=== PATIENT | female | born 1955 | race Caucasian/White ===

== ENCOUNTER 2022-04-17 09:34 | Outpatient (CLI) | payer MEDICARE | END 2022-04-17 09:35 | disposition home or self-care (01) | LOC: CSHMAMMO 09:34 | PROVIDERS: ATTEND Family Medicine | DX: Z12.31 Encounter for screening mammogram for malignant neoplasm of breast (principal) | CPT/HCPCS: 77063; 77067 ==

== ENCOUNTER 2022-04-23 17:45 | Emergency (ER) | payer MEDICARE | END 2022-04-23 20:29 | disposition home or self-care (01) | LOC: CSHERS 17:45 | DX: S51.812A Laceration without foreign body of left forearm, initial encounter (principal); M25.532 Pain in left wrist; I10 Essential (primary) hypertension; E11.9 Type 2 diabetes mellitus without complications; E78.5 Hyperlipidemia, unspecified; I25.10 Atherosclerotic heart disease of native coronary artery without angina pectoris; J44.9 Chronic obstructive pulmonary disease, unspecified; F17.210 Nicotine dependence, cigarettes, uncomplicated; W18.11XA Fall from or off toilet without subsequent striking against object, initial encounter; Y92.002 Bathroom of unspecified non-institutional (private) residence as the place of occurrence of the external cause ==

== ENCOUNTER 2022-06-11 09:08 | Emergency (ER) | payer OTHER, MEDICARE | END 2022-06-11 11:00 | disposition home or self-care (01) | LOC: CSHERS 09:08 | DX: S09.90XA Unspecified injury of head, initial encounter (principal); S70.02XA Contusion of left hip, initial encounter; Z79.84 Long term (current) use of oral hypoglycemic drugs; Z79.899 Other long term (current) drug therapy; Z79.82 Long term (current) use of aspirin; I25.10 Atherosclerotic heart disease of native coronary artery without angina pectoris; I10 Essential (primary) hypertension; E78.5 Hyperlipidemia, unspecified; E11.9 Type 2 diabetes mellitus without complications; J44.9 Chronic obstructive pulmonary disease, unspecified; F17.210 Nicotine dependence, cigarettes, uncomplicated; W01.10XA Fall on same level from slipping, tripping and stumbling with subsequent striking against unspecified object, initial encounter | CPT/HCPCS: 70450; 72170 ==

== ENCOUNTER 2022-07-31 12:41 | Emergency (ER) | payer OTHER, MEDICARE | END 2022-07-31 14:45 | disposition home or self-care (01) | LOC: CSHERS 12:41 | DX: M25.512 Pain in left shoulder (principal); I25.10 Atherosclerotic heart disease of native coronary artery without angina pectoris; I10 Essential (primary) hypertension; E11.9 Type 2 diabetes mellitus without complications; J44.9 Chronic obstructive pulmonary disease, unspecified; F17.210 Nicotine dependence, cigarettes, uncomplicated; Z79.84 Long term (current) use of oral hypoglycemic drugs; Z79.899 Other long term (current) drug therapy; W01.0XXA Fall on same level from slipping, tripping and stumbling without subsequent striking against object, initial encounter | CPT/HCPCS: 93005 ==

== ENCOUNTER 2022-09-26 19:58 | Emergency (ER) | payer MEDICARE ==
[2022-09-26] MEDS ORDERED: Ondansetron PF 4 MG/2 ML Vial ONE (20:49)
[2022-09-26] MEDS ORDERED: Pantoprazole 40 MG VIAL ONE (20:49)
[2022-09-26 20:50] LABS: #Basophils 0.1 10x3/uL (0.0-0.2); #Eosinphils 0.1 10x3/uL (0.0-0.5); #Monocytes 0.5 10x3/uL (0.0-1.1); #Neutrophils 13.1 10x3/uL (1.5-8.4); %Basophils 0.3 % (0.0-2.0); %Eosinophils 0.4 % (0.0-6.0); %Lymphocytes 6.9 % (18.0-47.0); %Monocytes 3.3 % (0.0-10.0); %Neutrophils 88.8 % (40.0-75.0); Hemoglobin 15.3 g/dL (12.0-15.5); Mean Corpuscular HGB CONC 34.3 g/dL (32.0-36.0); Mean Corpuscular Hemoglobin 30.8 pg (27.0-33.0); Mean Corpuscular Volume 89.7 fl (81.6-98.3); Mean Platelet Volume 10.4 fl (7.4-10.4); Platelet Count 283 10x3/uL (150-450); RBC Distribution Width 13.7 % (11.5-14.5); Red Blood Cell (RBC) Count 4.97 10x6/uL (3.90-5.03); White Blood Cell (WBC) Count 14.8 10x3/uL (3.5-10.5)
[2022-09-26 21:00] LABS: ALT (SGPT) 13 U/L (8-55); AST (SGOT) 15 U/L (5-34); Albumin 4.2 g/dL (3.4-4.8); Alkaline Phosphatase 63 U/L (40-110); Anion Gap 14 mmol/L (10-20); BUN (Urea Nitrogen) 21 mg/dL (9.8-20.1); Bilirubin, Total 0.4 mg/dL (0.2-1.2); Calc. Creatinine Clearance 0 mL/min (70-130); Carbon Dioxide 28 mmol/L (23-31); Chloride 93 mmol/L (98-107); Estimated GFR 84; Globulin 3.2 g/dL (2.4-3.5); Glucose 211 mg/dL (80-115); Lipase 86 U/L (8-78); Potassium 3.4 mmol/L (3.5-5.1); Protein, Total 7.4 g/dL (5.8-8.1); Sodium 132 mmol/L (136-145)
[2022-09-26 21:57] LABS: SARS-CoV-2 NAA Rapid Test Not Detected (NotDetected)
[2022-09-26 22:59] LABS: Bilirubin Neg (Negative); Blood, Urine 10 (Negative); Clarity Clear (Clear); Glucose, Urine (Dipstick) Normal (Negative); Ketone, Urine Negative (Negative); Leukocyte Negative (Negative); Nitrite Negative (Negative); Protein, Urine (Dipstick) 30 mg/dl (Neg-Trace); Urobilinogen Normal mg/dL (Less than 2)
[2022-09-26 23:09] LABS: Bacteria/HPF Rare-Few HPF (None Seen); WBC/HPF 0-3 HPF (0-3)
== END 2022-09-27 01:30 | disposition home or self-care (01) ==
LOC: CSHERS 19:58
DX: R11.10 Vomiting, unspecified (principal); R19.7 Diarrhea, unspecified; K85.90 Acute pancreatitis without necrosis or infection, unspecified; D72.829 Elevated white blood cell count, unspecified; J44.9 Chronic obstructive pulmonary disease, unspecified; E11.9 Type 2 diabetes mellitus without complications; E78.5 Hyperlipidemia, unspecified; I10 Essential (primary) hypertension; F17.210 Nicotine dependence, cigarettes, uncomplicated; Z20.822 Contact with and (suspected) exposure to COVID-19
CPT/HCPCS: 0240U; 71045; 74177; 80053; 83690; 84484; 85025; 93005; 96374; 96375; 99284; 81003; 81015; C9113; J2405

== ENCOUNTER 2022-11-16 18:31 | Emergency (ER) | payer MEDICARE ==
[2022-11-16] MEDS ORDERED: Boostrix 0.5 ML (Tdap) VIAL (>/=7 yrs of age) ONE (19:13)
[2022-11-16] MEDS ORDERED: Triple Antibiotic Oint 1 GM Packet ONE (19:14)
== END 2022-11-16 19:24 | disposition home or self-care (01) ==
LOC: CSHERS 18:31
DX: S51.812A Laceration without foreign body of left forearm, initial encounter (principal); I25.10 Atherosclerotic heart disease of native coronary artery without angina pectoris; I10 Essential (primary) hypertension; E78.5 Hyperlipidemia, unspecified; E11.9 Type 2 diabetes mellitus without complications; J44.9 Chronic obstructive pulmonary disease, unspecified; F17.210 Nicotine dependence, cigarettes, uncomplicated; W26.0XXA Contact with knife, initial encounter
CPT/HCPCS: 90471; 90715; 99282

== ENCOUNTER 2022-12-28 10:03 | Emergency (ER) | payer MEDICARE, OTHER ==
[2022-12-28] MEDS ORDERED: Lidocaine 1% PF 5 ML VIAL ONE (10:21)
== END 2022-12-28 10:46 | disposition home or self-care (01) ==
LOC: CSHERS 10:03
DX: S61.011A Laceration without foreign body of right thumb without damage to nail, initial encounter (principal); I25.10 Atherosclerotic heart disease of native coronary artery without angina pectoris; I10 Essential (primary) hypertension; E11.9 Type 2 diabetes mellitus without complications; E78.5 Hyperlipidemia, unspecified; F17.210 Nicotine dependence, cigarettes, uncomplicated; J44.9 Chronic obstructive pulmonary disease, unspecified; W26.8XXA Contact with other sharp object(s), not elsewhere classified, initial encounter; Y93.G3 Activity, cooking and baking
CPT/HCPCS: 12001

== ENCOUNTER 2023-01-05 16:41 | Emergency (ER) | payer OTHER | END 2023-01-05 18:15 | disposition home or self-care (01) | LOC: CSHERS 16:41 | DX: S61.011D Laceration without foreign body of right thumb without damage to nail, subsequent encounter (principal); X58.XXXD Exposure to other specified factors, subsequent encounter ==

== ENCOUNTER 2023-08-04 10:06 | Emergency (ER) | payer MEDICARE, OTHER | END 2023-08-04 12:51 | disposition home or self-care (01) | LOC: CSHERS 10:06 | DX: S70.02XA Contusion of left hip, initial encounter (principal); S80.02XA Contusion of left knee, initial encounter; M25.572 Pain in left ankle and joints of left foot; I25.10 Atherosclerotic heart disease of native coronary artery without angina pectoris; I10 Essential (primary) hypertension; E78.5 Hyperlipidemia, unspecified; E11.9 Type 2 diabetes mellitus without complications; J44.9 Chronic obstructive pulmonary disease, unspecified; F17.210 Nicotine dependence, cigarettes, uncomplicated; W18.39XA Other fall on same level, initial encounter ==

== ENCOUNTER 2023-09-29 06:45 | Emergency (ER) | payer MEDICARE ==
[2023-09-29] MEDS ORDERED: Ipratropium/Albuterol 3 ML NEB ONE (07:33)
[2023-09-29] MEDS ORDERED: predniSONE 20 MG TAB ONE (07:37)
[2023-09-29 08:19] LABS: SARS-CoV-2 NAA Rapid Test DETECTED (NotDetected)
== END 2023-09-29 08:46 | disposition home or self-care (01) ==
LOC: CSHERS 06:45
DX: U07.1 COVID-19 (principal); J44.1 Chronic obstructive pulmonary disease with (acute) exacerbation; E11.9 Type 2 diabetes mellitus without complications; I10 Essential (primary) hypertension; I25.10 Atherosclerotic heart disease of native coronary artery without angina pectoris; E78.5 Hyperlipidemia, unspecified; F17.210 Nicotine dependence, cigarettes, uncomplicated; Z79.899 Other long term (current) drug therapy; Z79.82 Long term (current) use of aspirin; Z79.84 Long term (current) use of oral hypoglycemic drugs
CPT/HCPCS: 0240U; 71045; 93005; 36415; J7512; J7620

== ENCOUNTER 2024-02-06 13:50 | Inpatient (IN) | payer MEDICARE ==
[2024-02-06] MEDS ORDERED: predniSONE 20 MG TAB ONE ×2 (14:16→14:27)
[2024-02-06] MEDS ORDERED: Magnesium 2 GM/50 ML BAG (IN WATER) ONE (14:16)
[2024-02-06] MEDS ORDERED: Ipratropium/Albuterol 3 ML NEB ONE ×3 (14:20→18:42)
[2024-02-06 14:41] LABS: #Basophils 0.05 10x3/uL (0.0-0.2); #Monocytes 0.99 10x3/uL (0.0-1.1); #Neutrophils 5.38 10x3/uL (1.5-8.4); %Basophils 0.5 % (0.0-2.0); %Lymphocytes 32.2 % (18.0-47.0); %Monocytes 10.2 % (0.0-10.0); %Neutrophils 55.7 % (40.0-75.0); Hematocrit 48.7 % (34.9-44.5); Mean Corpuscular HGB CONC 34.9 g/dL (32.0-36.0); Mean Corpuscular Hemoglobin 31.5 pg (27.0-33.0); Mean Corpuscular Volume 90.4 fL (81.6-98.3); Mean Platelet Volume 10.2 fL (7.4-10.4); Platelet Count 250 10x3/uL (150-450); RBC Distribution Width 13.3 % (11.5-14.5); Red Blood Cell (RBC) Count 5.39 10x6/uL (3.90-5.03); White Blood Cell (WBC) Count 9.7 10x3/uL (3.5-10.5)
[2024-02-06] MEDS ORDERED: Azithromycin 500 MG VIAL ONE (14:44)
[2024-02-06] MEDS ORDERED: cefTRIAXone (ROCEPHIN) 1 GM VIAL ONE (14:44)
[2024-02-06 15:01] LABS: ALT (SGPT) 15 U/L (8-55); AST (SGOT) 16 U/L (5-34); Albumin 3.8 g/dL (3.4-4.8); Alkaline Phosphatase 76 U/L (40-110); Anion Gap 17 mmol/L (10-20); BUN (Urea Nitrogen) 19 mg/dL (9.8-20.1); Bilirubin, Total 0.5 mg/dL (0.2-1.2); Calc. Creatinine Clearance 0 mL/min (70-130); Calcium 10.8 mg/dL (7.8-10.44); Carbon Dioxide 25 mmol/L (23-31); Chloride 97 mmol/L (98-107); Estimated GFR 84; Globulin 3.2 g/dL (2.4-3.5); Glucose 102 mg/dL (80-115); Potassium 4.1 mmol/L (3.5-5.1); Sodium 135 mmol/L (136-145)
[2024-02-06 15:03] LABS: Troponin I 0.025 ng/mL (< 0.028)
[2024-02-06] MEDS ORDERED: Acetaminophen 325 MG TAB PO PRN (15:45)
[2024-02-06] MEDS ORDERED: Ipratropium/Albuterol 3 ML NEB NEB PRN (15:45)
[2024-02-06] MEDS ORDERED: Glucagon 1 MG/ML KIT IM PRN (15:45)
[2024-02-06] MEDS ORDERED: Dextrose 5% in Water 1,000 ML IV PRN (15:45)
[2024-02-06] MEDS ORDERED: Dextrose 50% Abboject 50 ML SYRINGE SLOW IVP PRN (15:45)
[2024-02-06] MEDS ORDERED: Insulin Regular, Human 100 UNIT/ML 10 ML VIAL SC PRN (15:45)
[2024-02-06] MEDS: Sodium Chloride 0.9% 1,000 ML IV SCH (17:03)
[2024-02-06] MEDS: Ipratropium/Albuterol 3 ML NEB NEB SCH (18:50)
[2024-02-06 19:51] VITALS: BMI 37.3
[2024-02-06] MEDS: Famotidine 20 MG TAB PO SCH (21:22)
[2024-02-06] MEDS: Insulin Regular 300 UNITS/3 ML VIAL SC PRN (22:28)
[2024-02-07 05:29] LABS: Anion Gap 14 mmol/L (10-20); BUN (Urea Nitrogen) 19 mg/dL (9.8-20.1); Calc. Creatinine Clearance 104 mL/min (70-130); Calcium 10.3 mg/dL (7.8-10.44); Carbon Dioxide 29 mmol/L (23-31); Chloride 99 mmol/L (98-107); Estimated GFR 84; Glucose 113 mg/dL (80-115); Potassium 4.8 mmol/L (3.5-5.1); Sodium 137 mmol/L (136-145)
[2024-02-07 05:33] LABS: #Basophils 0.03 10x3/uL (0.0-0.2); #Eosinphils 0.02 10x3/uL (0.0-0.5); #Monocytes 0.89 10x3/uL (0.0-1.1); #Neutrophils 5.09 10x3/uL (1.5-8.4); %Basophils 0.4 % (0.0-2.0); %Eosinophils 0.2 % (0.0-6.0); %Lymphocytes 25.9 % (18.0-47.0); %Monocytes 10.9 % (0.0-10.0); %Neutrophils 62.4 % (40.0-75.0); Hematocrit 42.9 % (34.9-44.5); Hemoglobin 14.9 g/dL (12.0-15.5); Mean Corpuscular HGB CONC 34.7 g/dL (32.0-36.0); Mean Corpuscular Hemoglobin 31.6 pg (27.0-33.0); Mean Corpuscular Volume 91.1 fL (81.6-98.3); Mean Platelet Volume 9.8 fL (7.4-10.4); Platelet Count 199 10x3/uL (150-450); RBC Distribution Width 13.4 % (11.5-14.5); Red Blood Cell (RBC) Count 4.71 10x6/uL (3.90-5.03); White Blood Cell (WBC) Count 8.2 10x3/uL (3.5-10.5)
[2024-02-07] MEDS: Enoxaparin 40 MG (0.4 mL) SYRINGE SC SCH (10:05)
[2024-02-07] MEDS: predniSONE 20 MG TAB PO SCH (10:05)
[2024-02-07] MEDS: Ondansetron ODT 4 MG TAB PO PRN (14:13)
[2024-02-07] MEDS: cefTRIAXone\\ROCEPHIN 1 GM in Sodium Chloride 0.9% 100 ML IVPB SCH (14:13)
[2024-02-07] MEDS: Guaifenesin DM 100-10/5 ML UDCUP PO PRN (14:27)
[2024-02-07] MEDS: Azithromycin 500 MG in Sodium Chloride 0.9% 250 ML 250 ML IVPB SCH (14:28)
[2024-02-07] MEDS: Mometasone/Formoterol 200/5 60 PUFF INH SCH (15:18)
[2024-02-07] MEDS: metFORMIN 500 MG TAB PO SCH (20:52)
[2024-02-07] MEDS: Floranex 1 GM Packet PO SCH (20:52)
[2024-02-08 05:03] LABS: Anion Gap 13 mmol/L (10-20); BUN (Urea Nitrogen) 14 mg/dL (9.8-20.1); Calc. Creatinine Clearance 114 mL/min (70-130); Carbon Dioxide 29 mmol/L (23-31); Chloride 97 mmol/L (98-107); Estimated GFR 94; Glucose 98 mg/dL (80-115); Potassium 4.2 mmol/L (3.5-5.1); Sodium 135 mmol/L (136-145)
[2024-02-08] MEDS: Mometasone/Formoterol 200/5 60 PUFF INH SCH (07:27)
[2024-02-08] MEDS: Lisinopril 20 MG TAB PO SCH (09:43)
[2024-02-08] MEDS: Atorvastatin Calcium 20 MG TAB PO SCH (09:44)
[2024-02-08] MEDS: Hydrochlorothiazide 25 MG TAB PO SCH (09:44)
[2024-02-08] MEDS: Atenolol 25 MG TAB PO SCH (09:47)
[2024-02-09] MEDS: Aspirin 81 mg Enteric Coated Tablet PO SCH (09:40)
[2024-02-09] MEDS: Azithromycin 250 MG TAB PO SCH (13:05)
[2024-02-09] MEDS ORDERED: [UNRECOGNIZED DRUG - CODE] IVPB SCH (14:00)
[2024-02-11 08:06] VITALS: BP 180/79; TEMP 98.8
== END 2024-02-11 10:15 | disposition home or self-care (01) | DRG 189 ==
LOC: CSHERS 13:50 → CSHERHOLD 15:26 → CSHTELE 20:48 → OBSVTOIN 02-07 14:23
PROVIDERS: ADMIT Family Medicine; ATTEND Family Medicine
DX: J96.01 Acute respiratory failure with hypoxia (principal); J44.1 Chronic obstructive pulmonary disease with (acute) exacerbation; E11.9 Type 2 diabetes mellitus without complications; I10 Essential (primary) hypertension; E78.5 Hyperlipidemia, unspecified; Z88.5 Allergy status to narcotic agent; Z88.8 Allergy status to other drugs, medicaments and biological substances; Z79.899 Other long term (current) drug therapy; Z79.82 Long term (current) use of aspirin; Z79.84 Long term (current) use of oral hypoglycemic drugs; Z98.51 Tubal ligation status; Z98.890 Other specified postprocedural states; Z87.891 Personal history of nicotine dependence; Z79.4 Long term (current) use of insulin
CPT/HCPCS: 36415; 36416; 71045; 80048; 80053; 83880; 84484; 85025; 93005; 94640; 94760; 94762; 96365; 96367; 96372; 96376; G0378; J0456; J0696; J1650; J1815; J3475; J3490; J7050; J7512; J7620; Q0162

== ENCOUNTER 2024-05-10 19:18 | Emergency (ER) | payer OTHER, MEDICARE ==
[2024-05-10] MEDS ORDERED: Ketorolac Tromethamine 30 MG (1 mL) VIAL ONE (19:48)
== END 2024-05-10 20:53 | disposition home or self-care (01) ==
LOC: CSHERS 19:18
DX: S90.121A Contusion of right lesser toe(s) without damage to nail, initial encounter (principal); E11.9 Type 2 diabetes mellitus without complications; I10 Essential (primary) hypertension; E78.5 Hyperlipidemia, unspecified; I25.10 Atherosclerotic heart disease of native coronary artery without angina pectoris; J44.9 Chronic obstructive pulmonary disease, unspecified; Z79.899 Other long term (current) drug therapy; Z79.82 Long term (current) use of aspirin; Z79.84 Long term (current) use of oral hypoglycemic drugs; W22.8XXA Striking against or struck by other objects, initial encounter
CPT/HCPCS: 99283; J1885